=== PATIENT | male | born 1960 | race Caucasian/White ===

== ENCOUNTER 2016-11-23 22:44 | Emergency (ER) | payer MEDICAID, OTHER ==
[~2016-11-23] VITALS: Ht 177.8 cm; Wt 85.5 kg
[2016-11-23 22:58] VITALS: Ht 177.8 cm; Wt 85.5 kg
[2016-11-24 01:56] LABS: ADD SCAN DIFF NO
[2016-11-24 01:59] LABS: BASOPHILS % 0.5 % (0.0-2.0); EOSINOPHILS # 0.2 10^3/ul (0.0-0.5); EOSINOPHILS % 2.4 % (0.0-7.0); HEMATOCRIT 44.5 % (42.0-52.0); HEMOGLOBIN 14.3 g/dl (14.0-18.0); LYMPHOCYTES # 2.2 10^3/ul (0.8-2.9); LYMPHOCYTES % 28.3 % (15.0-51.0); MEAN CORPUSCULAR HEMOGLOBIN 30.4 pg (29.0-33.0); MEAN CORPUSCULAR HGB CONC 32.1 g/dl (32.0-37.0); MEAN CORPUSCULAR VOLUME 94.7 fl (82.0-101.0); MEAN PLATELET VOLUME 9.5 fl (7.4-10.4); MONOCYTE # 0.6 10^3/ul (0.3-0.9); MONOCYTES % 7.8 % (0.0-11.0); NEUTROPHIL # 4.8 10^3/ul (1.6-7.5); NEUTROPHILS % 60.7 % (39.0-77.0); PLATELET COUNT 231 10^3/UL (140-415); WHITE BLOOD COUNT 7.9 10^3/ul (4.8-10.8)
[2016-11-24 02:09] LABS: CHLORIDE 106 mmol/L (97-110)
[2016-11-24 02:10] LABS: ALBUMIN 3.9 g/dl (3.3-4.9); POTASSIUM 4.7 mmol/L (3.5-5.1); SODIUM 146 mmol/L (135-144)
[2016-11-24 02:12] LABS: ANION GAP 15 (8-16); BILIRUBIN,INDIRECT 0.5 mg/dl (0-1.1); BILIRUBIN,TOTAL 0.5 mg/dl (0.2-1.3); CARBON DIOXIDE 30 mmol/L (21-31)
[2016-11-24 02:13] LABS: ALANINE AMINOTRANSFERASE 49 IU/L (13-69); ALBUMIN/GLOBULIN RATIO 1.11; ALKALINE PHOSPHATASE 110 IU/L (42-121); ASPARTATE AMINO TRANSFERASE 53 IU/L (15-46); BLOOD UREA NITROGEN 16 mg/dl (7-20); CALCIUM 9.7 mg/dl (8.4-10.2); GLUCOSE 120 mg/dl (70-220); TOTAL PROTEIN 7.4 g/dl (6.1-8.1)
[2016-11-24 02:38] LABS: ACETAMINOPHEN < 10.0 ug/ml (10.0-30.0); SALICYLATE < 1.0 mg/dl (5.0-30.0)
--- NOTE | 2016-11-24 02:46 | ERA ---
ER Documentation Chief Complaint Date/Time DATE: 11/24/16 TIME: 02:45 Chief Complaint suicidal ideation"I am thinking drug overdose i did it before" HPI This 48-year-old male suicidal ideation. Patient says his plan is significant drug overdose. History of previous attempt. ROS All systems reviewed and are negative except as per history of present illness. Allergies Allergies: Coded Allergies: No Known Allergy (Unverified , 11/23/16) Physical Exam Vitals Vital Signs Date Time Temp Pulse Resp B/P Pulse Ox O2 Delivery O2 Flow Rate FiO2 11/23/16 22:58 97.8 93 20 144/80 97 Physical Exam Const: [] Head: Atraumatic Eyes: Normal Conjunctiva ENT: Normal External Ears, Nose and Mouth. Neck: Full range of motion..~ No meningismus. Resp: Clear to auscultation bilaterally Cardio: Regular rate and rhythm, no murmurs Abd: Soft, non tender, non distended. Normal bowel sounds Skin: No petechiae or rashes Back: No midline or flank tenderness Ext: No cyanosis, or edema Neur: Awake and alert Psych: Normal Mood and Affect Result Diagram: 11/24/165 11/24/16 0145 Results 24 hrs Laboratory Tests Test 11/24/16 01:45 Acetaminophen Level < 10.0ug/ml Alanine Aminotransferase (ALT/SGPT) 49IU/L Albumin 3.9g/dl Albumin/Globulin Ratio 1.11 Alkaline Phosphatase 110IU/L Anion Gap 15 Aspartate Amino Transf (AST/SGOT) 53IU/L Basophils # 0.010^3/ul Basophils % 0.5% Blood Urea Nitrogen 16mg/dl Calcium Level 9.7mg/dl Carbon Dioxide Level 30mmol/L Chloride Level 106mmol/L Creatinine 0.80mg/dl Direct Bilirubin 0.00mg/dl Eosinophils # 0.210^3/ul Eosinophils % 2.4% Ethyl Alcohol Level Pending Globulin 3.50g/dl Glucose Level 120mg/dl Hematocrit 44.5% Hemoglobin 14.3g/dl Indirect Bilirubin 0.5mg/dl Lymphocytes # 2.210^3/ul Lymphocytes % 28.3% Mean Corpuscular Hemoglobin 30.4pg Mean Corpuscular Hemoglobin Concent 32.1g/dl Mean Corpuscular Volume 94.7fl Mean Platelet Volume 9.5fl Monocytes # 0.610^3/ul Monocytes % 7.8% Neutrophils # 4.810^3/ul Neutrophils % 60.7% Nucleated Red Blood Cells # 0.010^3/ul Nucleated Red Blood Cells % 0.0/100WBC Platelet Count 61153^3/UL Potassium Level 4.7mmol/L Red Blood Count 4.7010^6/ul Red Cell Distribution Width 13.0% Salicylates Level < 1.0mg/dl Sodium Level 146mmol/L Total Bilirubin 0.5mg/dl Total Protein 7.4g/dl White Blood Count 7.910^3/ul Procedures/MDM Patient's behavioral symptoms have stabilized while in the department. Patient is medically cleared and appropriate for psychiatric evaluation and work up. No e/o neurologic, toxic, infectious, or metabolic cause. Patient awaiting BHU placement. Placed on 5150 hold by telemetry psychiatry Departure Diagnosis: Primary Impression: Suicidal ideation Condition: Serious SUELLEN BAGLEY Nov 24, 2016 02:46
--- NOTE | 2016-11-24 02:50 | PSY ---
Date/Time of Note Date/Time of Note DATE: 11/24/16 TIME: 02:37 Psychiatric Subjective Eval Consent Pt consented to telemedicine: Yes Subjective Evaluation Patient location: emergency Chief Complaint: suicidal ideation"I am thinking drug overdose i did it before " Reason for consult: suicidal History of present illness patient is a 56 yo male with PPH Of bipolar do, anxiety and amphetamine abuse who came to the [facility] ER due to feeling suicidal for the past 4 days, he states that he wants to kill himself by overdosing on heroine as he has done it in the past , he has been hearing voices telling him to hurt himself and to hurt other people. He has been feeling depressed, hopeless and helpless for months due to being homeless, he has been "self medicating " with methamphetamine almost daily , he has been feeling paranoid, unable to sleep well for days, decrease appetite and irritability. no HI. 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: unemployed Psychiatric Objective Eval Review of Systems: Review of Systems: Not Applicable Physical Examination: Physical Examination: Applicable Sleep: Insomnia Appetite: Decreased Energy: Decreased Interest: Decreased Mental Status Examination: Appearance: Disheveled Eye Contact: Good Psychomotor Activity: Normal Behavior: Cooperative Speech: Clear AFFECT: Depressed Mood: Depressed Though Process: Linear Thought Content: Hallucinations Suicidal: Yes Homicidal: No On 72 hour hold: No Orientation: x3 Cognition: Alert Insight: Impared Judgement: Impared Attention Span: Intact Laboratory Results Laboratory Tests Test 11/24/16 01:45 Basophils # 0.010^3/ul Basophils % 0.5% Eosinophils # 0.210^3/ul Eosinophils % 2.4% Hematocrit 44.5% Hemoglobin 14.3g/dl Lymphocytes # 2.210^3/ul Lymphocytes % 28.3% Mean Corpuscular Hemoglobin 30.4pg Mean Corpuscular Hemoglobin Concent 32.1g/dl Mean Corpuscular Volume 94.7fl Mean Platelet Volume 9.5fl Monocytes # 0.610^3/ul Monocytes % 7.8% Neutrophils # 4.810^3/ul Neutrophils % 60.7% Nucleated Red Blood Cells # 0.010^3/ul Nucleated Red Blood Cells % 0.0/100WBC Platelet Count 19206^3/UL Red Blood Count 4.7010^6/ul Red Cell Distribution Width 13.0% White Blood Count 7.910^3/ul Assessment and Plan Assessment/Diagnosis [place] I: psychosis nos amphetamine abuse [place] II: deferred [place] III: as per record [place] IV: homeless [place] V: gaf 25 Recommendation/Plan Medication Management zyprexa 10 mg po bid Follow-up/Disposition Please admit patient on unvoluntary status due to Danger to self, In my opinion, patient currently MEETS criterion for inpatient care and CANNOT be safely treated at a lower level of care today as evidenced by the following risk factors: Current and Recent Suicidal Ideation Previous suicide attempt and severe self-destructive behavior Intense feelings of hopelessness and lack of future orientation. Significant recent DETERIORATION in function, behavior and thought processes Command hallucinations with violent content Substance ABUSE in conjunction with another psychiatric disorder Non-Compliance with Outpatient Treatment Patient has failed outpatient and requires further inpatient assessment Medication changes require observation unavailable at a lower level of care 5150 Recommendation: NURYS Burnett MD Nov 24, 2016 02:47
[2016-11-24 03:38] LABS: ETHANOL < 10.0 mg/dl
[2016-11-24 05:55] LABS: ADD UMIC NO; URINE BILIRUBIN (Dip) NEGATIVE (NEGATIVE); URINE BLOOD (Dip) NEGATIVE (NEGATIVE); URINE COLOR YELLOW (YELLOW); URINE GLUCOSE (Dip) NEGATIVE (NEGATIVE); URINE KETONES (Dip) NEGATIVE (NEGATIVE); URINE LEUKOCYTE ESTERASE (Dip) NEGATIVE (NEGATIVE); URINE NITRITE (Dip) NEGATIVE (NEGATIVE); URINE TOTAL PROTEIN (Dip) NEGATIVE (NEGATIVE); URINE UROBILINOGEN (Dip) 0.2 E.U./dL (0.1-1.0)
[2016-11-24 06:11] LABS: BARBITURATES Negative (NEGATIVE); BENZODIAZEPINES Negative (NEGATIVE)
[2016-11-24 06:12] LABS: CANNABINOIDS Positive (NEGATIVE); COCAINE Negative (NEGATIVE)
[2016-11-24 06:13] LABS: OPIATES Negative (NEGATIVE)
[2016-11-24] MEDS ORDERED: ALPRAZOLAM 0.25 MG TAB PO ONE ×2 (12:30→20:30)
[2016-11-24 21:28] VITALS: BP 136/82; PULSE 78; RESP 18; TEMP 98
== END 2016-11-24 21:35 ==
LOC: E/R 22:44
DX: F29 Unspecified psychosis not due to a substance or known physiological condition (principal); R45.851 Suicidal ideations
CPT/HCPCS: 36415; 80053; 80306; 80307; 81003; 85025; Z7502; Z7610; 99285